=== PATIENT | male | born 1965 | race Caucasian/White ===

== ENCOUNTER 2022-05-19 18:23 | Inpatient (IN) | payer MEDICAID, OTHER ==
[~2022-05-19] VITALS: Ht 165.1 cm; Wt 77.1 kg
[2022-05-19 19:14] LABS: BASOPHILS % 0.6 % (0.0-2.0); EOSINOPHILS % 5.2 % (0.0-5.0); LYMPHOCYTES % 10.3 % (20.0-50.0); MEAN PLATELET VOLUME 8.7 fl (7.4-10.4); NEUTROPHILS % 76.9 % (40.0-76.0); PLATELET 193 x1000/uL (130-400); RED BLOOD CELL COUNT 3.57 mill/uL (4.7-6.1); RED CELL DISTRIBUTION WIDTH 16.6 % (11.6-14.6)
[2022-05-19 19:22] LABS: CHLORIDE 99 mEq/L (98-107)
[2022-05-19] MEDS ORDERED: HYDRALAZINE 20MG/ML VIAL IV ONE (19:45)
[2022-05-19] MEDS ORDERED: MORPHINE SULFATE 4 MG/ML CPJ (NOT FOR IM USE) IV ONE (19:45)
[2022-05-19] MEDS ORDERED: VANCOMYCIN 1G PREMIX 200 ML IV STA (20:24)
[2022-05-19] MEDS ORDERED: PIPERACILLIN/TAZOBACTAM 3.375GM/50ML PREMIX IV STA (20:24)
[2022-05-19] MEDS ORDERED: PIPERACILLIN/TAZ 3.375G PREMIX 50 ML IV NR (20:30)
[2022-05-19] MEDS ORDERED: DEXTROSE 50% WATER 50ML SYRINGE IV ONE (20:30)
[2022-05-20] MEDS ORDERED: HYDROCODONE/ACETAMINOPHEN 5/325MG TABLET PO PRN (08:00)
[2022-05-20] MEDS ORDERED: MAGNESIUM/ALUMINUM HYDROXIDE/SIMETHICONE 30ML UDC PO PRN (08:00)
[2022-05-20] MEDS ORDERED: ONDANSETRON HCL 4MG/2ML INJ IV PRN (08:00)
[2022-05-20] MEDS ORDERED: DEXTROSE 50% WATER 50ML SYRINGE IV PRN ×2 (08:00)
[2022-05-20] MEDS: CLONIDINE 0.1MG TABLET PO PRN (08:19)
[2022-05-20] MEDS ORDERED: NALOXONE HCL 0.4MG/ML VIAL IV PRN (08:30)
[2022-05-20] MEDS: HYDRALAZINE HCL 50MG TABLET PO SCH ×2 (10:52→21:22)
[2022-05-20] MEDS: BLOOD SUGAR DIAGNOSTIC STRIP TEST SCH ×4 (11:30→21:34)
[2022-05-20 12:58] VITALS: BP 132/65
[2022-05-20 13:15] VITALS: BP 151/85
[2022-05-20 16:00] VITALS: BP 160/77
[2022-05-20 17:11] LABS: HEPATITIS B SURFACE ANTIGEN NEGATIVE
[2022-05-20 20:00] VITALS: BP 170/80
[2022-05-20] MEDS: AMLODIPINE 5MG TABLET PO SCH (21:22)
[2022-05-21] VITALS (7 sets, daily range): BP systolic 133–163; BP diastolic 67–89
[2022-05-21] MEDS: BLOOD SUGAR DIAGNOSTIC STRIP TEST SCH ×4 (05:50→21:17)
[2022-05-21 07:19] LABS: BASOPHILS % 0.6 % (0.0-2.0); EOSINOPHILS % 11.9 % (0.0-5.0); HEMATOCRIT. 27.8 % (42.0-52.0); HEMOGLOBIN. 9.3 g/dL (14.0-18.0); LYMPHOCYTES % 17.8 % (20.0-50.0); MEAN CORPUSCULAR HEMOGLOBIN 28.6 pg (28.0-32.0); MEAN CORPUSCULAR VOLUME 85.5 fL (80.0-94.0); MONOCYTES % 8.6 % (2.0-8.0); NEUTROPHILS % 61.1 % (40.0-76.0); PLATELET 180 x1000/uL (130-400); RED BLOOD CELL COUNT 3.25 mill/uL (4.7-6.1)
[2022-05-21 07:58] LABS: PHOSPHORUS 4.3 mg/dL (2.5-4.9); T4 FREE 1.15 ng/dL (0.76-1.46)
[2022-05-21] MEDS: HYDRALAZINE HCL 50MG TABLET PO SCH ×2 (08:08→21:18)
[2022-05-21] MEDS: AMLODIPINE 5MG TABLET PO SCH ×2 (08:08→21:18)
[2022-05-21] MEDS: ACETAMINOPHEN 325MG TABLET PO PRN ×2 (08:09→17:41)
[2022-05-21] MEDS: CLONIDINE 0.1MG TABLET PO PRN (17:41)
[2022-05-21] MEDS ORDERED: EPOETIN ALFA-EPBX 10,000 UNIT/ML VIAL SUBCUT SCH (21:00)
[2022-05-22] VITALS (7 sets, daily range): BP systolic 128–170; BP diastolic 64–81
[2022-05-22] MEDS: BLOOD SUGAR DIAGNOSTIC STRIP TEST SCH ×4 (05:36→21:00)
[2022-05-22 06:15] LABS: BASOPHILS % 0.6 % (0.0-2.0); EOSINOPHILS % 12.7 % (0.0-5.0); HEMATOCRIT. 26.6 % (42.0-52.0); HEMOGLOBIN. 8.9 g/dL (14.0-18.0); LYMPHOCYTES % 20.8 % (20.0-50.0); MEAN CORPUSCULAR HEMOGLOBIN 28.6 pg (28.0-32.0); MEAN CORPUSCULAR VOLUME 85.7 fL (80.0-94.0); MEAN PLATELET VOLUME 8.6 fl (7.4-10.4); MONOCYTES % 7.4 % (2.0-8.0); NEUTROPHILS % 58.5 % (40.0-76.0); PLATELET 167 x1000/uL (130-400)
[2022-05-22] MEDS: AMLODIPINE 5MG TABLET PO SCH ×2 (08:45→22:10)
[2022-05-22] MEDS: HYDRALAZINE HCL 50MG TABLET PO SCH ×2 (08:45→22:10)
[2022-05-22] MEDS: CLONIDINE 0.1MG TABLET PO PRN (22:10)
[2022-05-23] VITALS: BP 150/66
[2022-05-23 04:00] VITALS: BP 147/72
[2022-05-23] MEDS: BLOOD SUGAR DIAGNOSTIC STRIP TEST SCH ×3 (07:48→17:02)
[2022-05-23 08:00] VITALS: BP 155/77
[2022-05-23] MEDS: AMLODIPINE 5MG TABLET PO SCH (09:04)
[2022-05-23] MEDS: HYDRALAZINE HCL 50MG TABLET PO SCH (09:04)
[2022-05-23 09:10] LABS: BASOPHILS % 0.8 % (0.0-2.0); HEMATOCRIT. 26.5 % (42.0-52.0); HEMOGLOBIN. 8.7 g/dL (14.0-18.0); LYMPHOCYTES % 20.8 % (20.0-50.0); MEAN CORPUSCULAR HEMOGLOBIN 28.7 pg (28.0-32.0); MEAN CORPUSCULAR VOLUME 86.9 fL (80.0-94.0); MEAN PLATELET VOLUME 8.8 fl (7.4-10.4); MONOCYTES % 8.3 % (2.0-8.0); NEUTROPHILS % 57.1 % (40.0-76.0); PLATELET 161 x1000/uL (130-400); RED BLOOD CELL COUNT 3.04 mill/uL (4.7-6.1); RED CELL DISTRIBUTION WIDTH 17.1 % (11.6-14.6)
[2022-05-23 12:00] VITALS: BP 153/72
[2022-05-23] MEDS ORDERED: LOSARTAN POTASSIUM 25 MG TABLET PO SCH (13:15)
[2022-05-23 14:22] VITALS: BP 128/80
[2022-05-23 16:00] VITALS: BP 128/80
[2022-05-23] MEDS ORDERED: CARVEDILOL 12.5MG TABLET PO SCH (21:00)
== END 2022-05-23 17:44 | disposition home or self-care (01) | DRG 199 ==
LOC: EDBD 18:23 → ER 18:23 → MICUSO 21:42 → 7WST 05-20 12:38
PROVIDERS: ADMIT Internal Medicine; ATTEND Internal Medicine
PROC: 5A1D70Z Performance of Urinary Filtration, Intermittent, Less than 6 Hours Per Day (ICD-10-PCS; principal; 2022-05-20)
PROC: 5A1D70Z Performance of Urinary Filtration, Intermittent, Less than 6 Hours Per Day (ICD-10-PCS; 2022-05-21)
PROC: 5A1D70Z Performance of Urinary Filtration, Intermittent, Less than 6 Hours Per Day (ICD-10-PCS; 2022-05-22)
DX: I16.0 Hypertensive urgency (principal); I27.20 Pulmonary hypertension, unspecified; E11.649 Type 2 diabetes mellitus with hypoglycemia without coma; N18.6 End stage renal disease; I31.3 Pericardial effusion (noninflammatory); I13.2 Hypertensive heart and chronic kidney disease with heart failure and with stage 5 chronic kidney disease, or end stage renal disease; R07.89 Other chest pain; I50.9 Heart failure, unspecified; D64.9 Anemia, unspecified; E78.5 Hyperlipidemia, unspecified; I43 Cardiomyopathy in diseases classified elsewhere; E11.22 Type 2 diabetes mellitus with diabetic chronic kidney disease; E11.51 Type 2 diabetes mellitus with diabetic peripheral angiopathy without gangrene; I34.0 Nonrheumatic mitral (valve) insufficiency; Z99.2 Dependence on renal dialysis; Z89.512 Acquired absence of left leg below knee
CPT/HCPCS: 36415; 71045; 80048; 80053; 80061; 80076; 82962; 83036; 83735; 83880; 84100; 84439; 84443; 84484; 85025; 86705; 86709; 86803; 87340; 93005; 93306; 93970; 99291; J0360; J0885; J2270; J2543; J3370